=== PATIENT | male | born 1960 | race Caucasian/White ===

== ENCOUNTER 2022-01-27 05:26 | Inpatient (IN) ==
[2022-01-27] MEDS ORDERED: Morphine Sulfate 2 MG/ML SYRINGE IVP ONE (05:50)
[2022-01-27 05:59] LABS: Basophils # 0.1 K/mcL (0.0-0.2); Basophils % 0.5 %; Eosinophils # 0.2 K/mcL (0.0-0.6); Eosinophils % 1.4 %; Hematocrit 39.5 % (37.5-50.1); Hemoglobin 12.9 g/dL (12.9-16.9); Immature Granulocytes % 0.5 % (0-4); Lymphocytes # 1.2 K/mcL (0.6-4.6); Lymphocytes % 8.6 %; Mean Corpuscular HGB Conc 32.7 g/dL (31.6-35.5); Mean Corpuscular Hemoglobin 29.5 pg (28.0-33.3); Mean Corpuscular Volume 90.4 fL (83.0-100.0); Mean Platelet Volume 10.6 fL (9.4-12.4); Monocytes % 6.9 %; Neutrophils # 11.9 K/mcL (1.6-8.9); Platelet Count 244 K/mcL (140-400); Red Blood Count 4.37 M/mcL (4.19-5.50); Red Cell Distribution Width 12.9 % (11.5-14.5); Segmented Neutrophils % 82.1 %; White Blood Count 14.5 K/mcL (4.3-11.1)
[2022-01-27] MEDS ORDERED: Isovue-370 500 ML BOTTLE IVP ONE (06:07)
[2022-01-27 06:36] LABS: BUN/Creatinine Ratio 21 (6-26); Blood Urea Nitrogen 29 mg/dL (8-23); Calcium 9.1 mg/dL (8.6-10.3); Carbon Dioxide 26 mEq/L (23-29); Chloride 104 mEq/L (98-107); Glucose 184 mg/dL (70-105); Osmolality,Calculated 297 (280-300); Potassium 4.8 mEq/L (3.5-5.1); Sodium 138 mEq/L (136-145); Troponin I 0.08 ng/mL (< 0.04); eGFR For African Americans > 60 (> 60); eGFR For Non-African Americans 51 (> 60)
[2022-01-27 06:39] LABS: Influenza A PCR Negative (Negative); Influenza B PCR Negative (Negative); Resp. Syncytial Virus PCR Negative (Negative)
[2022-01-27 06:40] LABS: SARS-CoV-2 by PCR (In House) Negative (Negative)
[2022-01-27] MEDS ORDERED: *HR* FentaNYL (PF) 100 MCG/2 ML VIAL IVP ONE (08:12)
[2022-01-27] MEDS ORDERED: *HR* Heparin 5,000 UNIT/ML VIAL IVP PRN (08:28)
[2022-01-27] MEDS ORDERED: *HR* Heparin 5,000 UNIT/ML VIAL IVP ONE (08:28)
[2022-01-27] MEDS ORDERED: Naloxone 0.4 MG/ML INJ IVP PRN (08:47)
[2022-01-27] MEDS ORDERED: Ondansetron 4 MG/2 ML VIAL IVP PRN (08:47)
[2022-01-27 08:50] LABS: Heparin anti-factor XA UFH < 0.04 IU/mL (0.30-0.70)
[2022-01-27] MEDS ORDERED: Perflutren Lipid Microsphere 1.3 ML in 0.9 % Sodium Chloride 8.7 ML IVP PRN (08:50)
[2022-01-27 08:51] LABS: Prothrombin Time 10.7 Seconds (9.4-12.1)
[2022-01-27] MEDS ORDERED: D5% in Water 1,000 ML IVC PRN (08:51)
[2022-01-27] MEDS ORDERED: *HR* Dextrose 50 % in Water (Syg) 50 ML SYRINGE IVP PRN (08:51)
[2022-01-27] MEDS ORDERED: Dextrose 4 GM Chewable Tablets PO PRN ×2 (08:51)
[2022-01-27] MEDS ORDERED: Ringers Solution, Lactated 1,000 ML IVC SCH (09:00)
[2022-01-27] MEDS: Heparin 25,000UNIT/250ML 1/2NS 25,000 UNIT/250 ML IV.SOLN IVC SCH (09:09)
[2022-01-27] MEDS: Nitroglycerin 0.4 MG TAB.SUBL SL SCH (13:17)
[2022-01-27] MEDS: Insulin LISPRO 300 UNITS/3 ML VIAL SUBQ SCH ×3 (13:17→21:44)
[2022-01-27] MEDS: amLODIPine 5 MG TABLET PO SCH (14:04)
[2022-01-27] MEDS ORDERED: amLODIPine 5 MG TABLET PO SCH (17:00)
[2022-01-27] MEDS: carvediloL 6.25 MG TABLET PO SCH (17:36)
[2022-01-27] MEDS: *HR* Heparin 5,000 UNIT/ML VIAL IVP PRN (18:19)
[2022-01-27] MEDS: *HR* OxyCODONE/APAP 10/325 TABLET PO SCH (19:52)
[2022-01-27] MEDS ORDERED: atenoloL 50 MG TABLET PO SCH (21:00)
[2022-01-27] MEDS ORDERED: Aspirin Enteric Coated 81 MG Tablet PO SCH ×2 (21:00)
[2022-01-28] MEDS: Insulin LISPRO 300 UNITS/3 ML VIAL SUBQ SCH ×6 (00:08→21:53)
[2022-01-28] MEDS ORDERED: Acetaminophen 325 MG TABLET PO PRN (00:43)
[2022-01-28 00:47] LABS: Basophils # 0.1 K/mcL (0.0-0.2); Basophils % 0.5 %; Eosinophils # 0.2 K/mcL (0.0-0.6); Hematocrit 35.8 % (37.5-50.1); Hemoglobin 11.5 g/dL (12.9-16.9); Immature Granulocytes % 0.6 % (0-4); Lymphocytes % 18.2 %; Mean Corpuscular HGB Conc 32.1 g/dL (31.6-35.5); Mean Corpuscular Hemoglobin 28.9 pg (28.0-33.3); Mean Corpuscular Volume 89.9 fL (83.0-100.0); Mean Platelet Volume 10.6 fL (9.4-12.4); Monocytes # 0.9 K/mcL (0.0-1.3); Monocytes % 8.2 %; Neutrophils # 7.6 K/mcL (1.6-8.9); Platelet Count 202 K/mcL (140-400); Red Blood Count 3.98 M/mcL (4.19-5.50); Red Cell Distribution Width 12.9 % (11.5-14.5); Segmented Neutrophils % 70.5 %; White Blood Count 10.7 K/mcL (4.3-11.1)
[2022-01-28 01:07] LABS: BUN/Creatinine Ratio 21 (6-26); Blood Urea Nitrogen 25 mg/dL (8-23); Calcium 8.8 mg/dL (8.6-10.3); Carbon Dioxide 24 mEq/L (23-29); Chloride 106 mEq/L (98-107); Glucose 143 mg/dL (70-105); Osmolality,Calculated 289 (280-300); Potassium 3.8 mEq/L (3.5-5.1); Sodium 136 mEq/L (136-145); eGFR For African Americans > 60 (> 60); eGFR For Non-African Americans > 60 (> 60)
[2022-01-28] MEDS: Heparin 25,000UNIT/250ML 1/2NS 25,000 UNIT/250 ML IV.SOLN IVC SCH (05:13)
[2022-01-28 08:05] LABS: Magnesium 1.5 mg/dL (1.6-2.6)
[2022-01-28] MEDS: amLODIPine 5 MG TABLET PO SCH (08:20)
[2022-01-28] MEDS: *HR* OxyCODONE/APAP 10/325 TABLET PO SCH ×3 (08:25→21:52)
[2022-01-28] MEDS: carvediloL 6.25 MG TABLET PO SCH ×3 (08:25→15:56)
[2022-01-28] MEDS: Insulin DETEMIR 100 UNIT/ML X5UNITS SUBQ SCH (08:25)
[2022-01-28] MEDS: Aspirin Enteric Coated 81 MG Tablet PO SCH (08:25)
[2022-01-28 12:33] LABS: Potassium 4.2 mEq/L (3.5-5.1)
[2022-01-28 12:55] LABS: Troponin I 0.05 ng/mL (< 0.04)
[2022-01-28] MEDS ORDERED: amLODIPine 5 MG TABLET PO ONE (13:00)
[2022-01-28] MEDS: *HR* Heparin 5,000 UNIT/ML VIAL IVP PRN ×2 (13:02→21:52)
[2022-01-28] MEDS ORDERED: amLODIPine 5 MG TABLET PO SCH ×2 (21:00)
[2022-01-29] MEDS: Insulin LISPRO 300 UNITS/3 ML VIAL SUBQ SCH ×4 (00:34→13:01)
[2022-01-29] MEDS: Heparin 25,000UNIT/250ML 1/2NS 25,000 UNIT/250 ML IV.SOLN IVC SCH (03:02)
[2022-01-29 05:06] LABS: Basophils # 0.1 K/mcL (0.0-0.2); Basophils % 0.6 %; Eosinophils # 0.3 K/mcL (0.0-0.6); Eosinophils % 3.5 %; Hematocrit 38.5 % (37.5-50.1); Hemoglobin 12.6 g/dL (12.9-16.9); Immature Granulocytes % 0.5 % (0-4); Lymphocytes # 1.9 K/mcL (0.6-4.6); Lymphocytes % 19.6 %; Mean Corpuscular HGB Conc 32.7 g/dL (31.6-35.5); Mean Corpuscular Hemoglobin 29.2 pg (28.0-33.3); Mean Corpuscular Volume 89.1 fL (83.0-100.0); Mean Platelet Volume 10.9 fL (9.4-12.4); Monocytes # 0.9 K/mcL (0.0-1.3); Monocytes % 9.2 %; Neutrophils # 6.6 K/mcL (1.6-8.9); Platelet Count 225 K/mcL (140-400); Red Blood Count 4.32 M/mcL (4.19-5.50); Red Cell Distribution Width 12.7 % (11.5-14.5); Segmented Neutrophils % 66.6 %; White Blood Count 9.8 K/mcL (4.3-11.1)
[2022-01-29 05:22] LABS: BUN/Creatinine Ratio 22 (6-26); Blood Urea Nitrogen 25 mg/dL (8-23); Calcium 8.6 mg/dL (8.6-10.3); Carbon Dioxide 26 mEq/L (23-29); Chloride 103 mEq/L (98-107); Glucose 228 mg/dL (70-105); Magnesium 1.7 mg/dL (1.6-2.6); Osmolality,Calculated 294 (280-300); Potassium 3.9 mEq/L (3.5-5.1); Sodium 136 mEq/L (136-145); eGFR For African Americans > 60 (> 60); eGFR For Non-African Americans > 60 (> 60)
[2022-01-29 07:32] VITALS: TEMP 97.6
[2022-01-29] MEDS ORDERED: amLODIPine 5 MG TABLET PO SCH (09:00)
[2022-01-29] MEDS: carvediloL 6.25 MG TABLET PO SCH (09:37)
[2022-01-29] MEDS: *HR* OxyCODONE/APAP 10/325 TABLET PO SCH (09:38)
[2022-01-29] MEDS: Insulin DETEMIR 100 UNIT/ML X5UNITS SUBQ SCH (09:38)
[2022-01-29] MEDS: Aspirin Enteric Coated 81 MG Tablet PO SCH (09:39)
[2022-01-29] MEDS ORDERED: Heparin 1,000 UNITS/500 mL 500 ML ONE (11:09)
[2022-01-29] MEDS ORDERED: Nitroglycerin 1,000 MCG/5 ML VIAL IV ONE (11:09)
[2022-01-29] MEDS ORDERED: *HR* FentaNYL (PF) 100 MCG/2 ML VIAL ONE (11:09)
[2022-01-29] MEDS ORDERED: 0.9 % Sodium Chloride 2,000 ML ONE (11:09)
[2022-01-29] MEDS ORDERED: *HR* Heparin 10,000 UNIT/10 ML VIAL ONE (11:09)
[2022-01-29] MEDS ORDERED: ISOVUE-370 200 ML INFUS..BTL ONE (11:09)
[2022-01-29] MEDS ORDERED: *HR* Midazolam HCl 2 MG/2 ML VIAL ONE (11:09)
[2022-01-29] MEDS ORDERED: 0.9 % Sodium Chloride 1,000 ML ONE (11:23)
[2022-01-29 14:18] VITALS: BP 170/90; PULSE 81; O2SAT 98
[2022-01-29 15:03] LABS: Hematocrit 40.3 % (37.5-50.1); Hemoglobin 13.3 g/dL (12.9-16.9); Mean Platelet Volume 10.5 fL (9.4-12.4); Platelet Count 235 K/mcL (140-400); Red Blood Count 4.58 M/mcL (4.19-5.50); Red Cell Distribution Width 12.9 % (11.5-14.5); White Blood Count 9.8 K/mcL (4.3-11.1)
[2022-01-29 15:10] LABS: INR 1.1; Prothrombin Time 11.8 Seconds (9.4-12.1)
[2022-01-29 15:11] LABS: Heparin anti-factor XA UFH 0.13 IU/mL (0.30-0.70)
[2022-01-29 15:13] LABS: Activated Partial Thrombo Time 35.4 Seconds (26.0-36.0)
[2022-01-29] MEDS ORDERED: Alteplase (Activase) 9 MG in Syringe LUER-LOK 1 EACH IVPB ONE (15:23)
[2022-01-29 15:24] LABS: Alanine Aminotransferase 9 Units/L (7-52); Albumin 4.1 g/dL (3.5-5.7); Albumin/Globulin Ratio 1.5 (1.1-2.2); Alkaline Phosphatase 57 Units/L (34-104); Aspartate Amino Transferase 9 Units/L (13-39); BUN/Creatinine Ratio 19 (6-26); Bilirubin,Total 0.6 mg/dL (0.3-1.0); Blood Urea Nitrogen 22 mg/dL (8-23); Calcium 8.7 mg/dL (8.6-10.3); Carbon Dioxide 27 mEq/L (23-29); Chloride 102 mEq/L (98-107); Globulin 2.7 g/dL (2.4-3.5); Glucose 179 mg/dL (70-105); Osmolality,Calculated 288 (280-300); Potassium 4.2 mEq/L (3.5-5.1); Sodium 135 mEq/L (136-145); Total Protein 6.8 g/dL (6.4-8.9); Troponin I 0.03 ng/mL (< 0.04); eGFR For African Americans > 60 (> 60); eGFR For Non-African Americans > 60 (> 60)
[2022-01-29] MEDS ORDERED: *HR* Labetalol 20 MG/4 ML SYRINGE IVP PRN (15:27)
[2022-01-29] MEDS ORDERED: carvediloL 25 MG TABLET PO SCH (17:00)
[2022-01-29] MEDS ORDERED: *HR* Heparin 5,000 UNIT/ML VIAL SQ SCH (18:00)
== END 2022-01-29 16:10 | disposition short-term general hospital (02) | DRG 281 ==
LOC: 3NENU 05:26 → EMEROOARM 05:26 → 3NENU 10:57 → SUATTDRO 01-28 16:15
PROVIDERS: ADMIT Internal Medicine; ATTEND Internal Medicine